=== PATIENT | male | born 1995 | race Two or more races ===

== ENCOUNTER 2016-05-11 11:07 | Emergency (ER) ==
[2016-05-11 11:14] VITALS: BP 127/80; TEMP 99
--- NOTE | 2016-05-11 11:42 | ED.PDOC ---
General ED Provider: Dr. FLORENTIN CALL Chief Complaint: Respiratory Complaint Stated Complaint: Patient is a 20 year old male who comes to the Er with 4 day history of cough and chills, sore throat. coughs so hard makes him gag and has chest pain with cough only. Time Seen by Physician: 11:38 Mode of Arrival: Walk-In Information Source: Patient Exam Limitations: No limitations Primary Care Provider: MÓNICA MORENO Nursing and Triage Documentation Reviewed and Agree: Yes Review of Systems - Review Of Systems Constitutional: Reports: Chills, Fever, Loss of appetite Eyes: Reports: No symptoms Ears, Nose, Mouth, Throat: Reports: Throat pain Respiratory: Reports: Cough Cardiac: Reports: Chest pain (with cough only ) GI: Reports: No symptoms : Reports: No symptoms Musculoskeletal: Reports: No symptoms Skin: Reports: No symptoms Neurological: Reports: No symptoms Endocrine: Reports: No symptoms Hematologic/Lymphatic: Reports: No symptoms All Other Systems: Reviewed and Negative Past Medical History - Past Medical History Endocrine: Reports: None Cardiovascular: Reports: None Respiratory: Reports: None Hematological: Reports: None Gastrointestinal: Reports: None Genitourinary: Reports: None Neuro/Psych: Reports: None Musculoskeletal: Reports: None Cancer: Reports: None - Surgical History General Surgical History: Reports: Unknown - Family History Family History: Reports: Unknown - Social History Smoking Status: Never smoker Hx Substance Use: Yes (marijuana) Alcohol Screening: None Physical Exam - Physical Exam Appearance: Ill-appearing, Well-nourished Ill-appearing: Mild Eyes: SAMY, EOMI, Conjunctiva clear ENT: Ears normal, Nose normal, Oropharynx normal Respiratory: Airway patent, Breath sounds clear, Breath sounds equal, Respirations nonlabored Cardiovascular: RRR, Pulses normal, No rub, No murmur GI/: Soft, Nontender, No masses, Bowel sounds normal, No Organomegaly Musculoskeletal: Normal strength, ROM intact, No edema, No calf tenderness Skin: Warm, Dry, Normal color Neurological: Sensation intact, Motor intact, Reflexes intact, Cranial nerves intact, Alert, Oriented Psychiatric: Affect appropriate, Mood appropriate Critical Care Note - Critical Care Note Total Time (mins): 0 Course - Course Orders, Labs, Meds: Lab Review 05/11/16 11:28 Influenza A (Rapid) Negative Influenza B (Rapid) Negative Orders Category Date Time Status FLU A & B RAPID TEST [RAPID FLU A/B] Stat LAB 05/11/16 11:28 Completed STREP SCREEN Stat LAB 05/11/16 11:27 Completed Vital Signs: Temp Pulse Resp BP Pulse Ox 05/11/16 11:08 99 F 69 20 127/80 97 Departure - Departure Time of Disposition: 11:53 Disposition: HOME SELF-CARE Discharge Problem: Strep pharyngitis Instructions: Strep Throat (ED) Condition: Fair Pt referred to PMD for follow-up: Yes (3 days ) Additional Instructions: Push fluids Follow up with PCP in 3 days Prescriptions: Amoxicillin [Amoxil] 500 mg PO TID #30 capsule Ibuprofen [Motrin] 600 mg PO Q6H PRN #20 tablet PRN Reason: Analgesia Allergies/Adverse Reactions: Allergies No Known Allergies Allergy (Verified 05/11/16 11:17) Home Medications: Ambulatory Orders Amoxicillin [Amoxil] 500 mg PO TID #30 capsule 05/11/16 Ibuprofen [Motrin] 600 mg PO Q6H PRN #20 tablet 05/11/16 Disposition Discussed With: Patient
[2016-05-11 11:50] LABS: FLU INTERNAL QC INTERNAL QC VALID; RAPID FLU A NEGATIVE (NEGATIVE); RAPID FLU B NEGATIVE (NEGATIVE)
== END 2016-05-11 12:03 | disposition home or self-care (01) ==
LOC: ED 11:07
DX: J02.0 Streptococcal pharyngitis (principal)
CPT/HCPCS: 87804; 87880; 99283

== ENCOUNTER 2016-06-25 20:02 | Outpatient (CLI) | END 2016-06-25 20:03 | disposition home or self-care (01) | LOC: AMBL 20:02 | PROVIDERS: ATTEND Family Medicine | DX: S99.911A Unspecified injury of right ankle, initial encounter (principal); Y93.67 Activity, basketball ==

== ENCOUNTER 2016-09-03 22:28 | Emergency (ER) ==
[2016-09-03 22:45] VITALS: BP 119/73; TEMP 99.2; BMI 27.7
--- NOTE | 2016-09-03 23:01 | ED.PDOC ---
General ED Provider: Dr. FLORENTIN CALL Chief Complaint: Hand Pain/Injury Stated Complaint: Patient is a 20 year old male who comes to the Er with right hand pain after he punched the refrigerator when he got angry. Now has painon the 3rd Knuckle. Also complains of a chronic rash on ther left hand that has been itchy and occasionally oozing clear fluid. Has not followed up wth PCP for the same. States that his girlfriend has same rash. Has been treated for scabies recently. Time Seen by Physician: 22:53 Mode of Arrival: Walk-In Information Source: Patient Exam Limitations: No limitations Primary Care Provider: MÓNICA MORENO Nursing and Triage Documentation Reviewed and Agree: Yes Review of Systems - Review Of Systems Constitutional: Reports: No symptoms Eyes: Reports: No symptoms Ears, Nose, Mouth, Throat: Reports: No symptoms Respiratory: Reports: No symptoms Cardiac: Reports: No symptoms GI: Reports: No symptoms : Reports: No symptoms Musculoskeletal: Reports: Joint pain (right hand ) Skin: Reports: Rash Neurological: Reports: Anxiety Endocrine: Reports: No symptoms Hematologic/Lymphatic: Reports: No symptoms All Other Systems: Reviewed and Negative Past Medical History - Past Medical History Endocrine: Reports: None Cardiovascular: Reports: None Respiratory: Reports: None Hematological: Reports: None Gastrointestinal: Reports: None Genitourinary: Reports: None Neuro/Psych: Reports: None Musculoskeletal: Reports: None Cancer: Reports: None - Surgical History General Surgical History: Reports: Unknown - Family History Family History: Reports: Unknown - Social History Smoking Status: Never smoker Hx Substance Use: Yes (marijuana) Alcohol Screening: Occasionally - Immunizations Tetanus Shot up to Date: Yes Physical Exam - Physical Exam Appearance: Well-appearing, No pain distress, Well-nourished Eyes: SAMY, EOMI, Conjunctiva clear ENT: Ears normal, Nose normal, Oropharynx normal Respiratory: Airway patent, Breath sounds clear, Breath sounds equal, Respirations nonlabored Cardiovascular: RRR, Pulses normal, No rub, No murmur GI/: Soft, Nontender, No masses, Bowel sounds normal, No Organomegaly Musculoskeletal: Normal strength, No calf tenderness, Limited ROM, Edema Skin: Warm, Dry, Normal color Neurological: Sensation intact, Motor intact, Reflexes intact, Cranial nerves intact, Alert, Oriented Psychiatric: Affect appropriate, Mood appropriate Interpretation - Radiology Interpretation Radiology Interpretation By: Radiologist Radiology Results: Negative Exam Interpreted: Other (hand x ray ) Critical Care Note - Critical Care Note Total Time (mins): 0 Course - Course Orders, Labs, Meds: Orders Category Date Time Status Ibuprofen [Motrin] MEDS 09/03/16 23:32 Discontinued 800 mg PO ONCE STA HAND, RIGHT 3 VIEWS Stat RADS 09/03/16 22:53 Completed Medications Discontinued Medications Generic Name Dose Route Start Last Admin Trade Name Freq PRN Reason Stop Dose Admin Ibuprofen 800 mg 09/03/16 23:32 09/03/16 23:42 Motrin PO 09/03/16 23:33 800 mg ONCE STA Administration Vital Signs: Temp Pulse Resp BP Pulse Ox 09/03/16 22:29 99.2 F 69 20 119/73 97 Departure - Departure Time of Disposition: 23:11 Disposition: HOME SELF-CARE Discharge Problem: Hand pain, Injury of hand, Dermatitis Instructions: Hand Sprain (ED), Dermatitis (ED) Condition: Fair Pt referred to PMD for follow-up: Yes Additional Instructions: Use steroid cream to rash twice a day taking care not to touch your eyes after applying Follow up with PCP for Skin biopsy Take Motrin for hand pain. Prescriptions: Clobetasol Propionate/Emoll [Clobetasol Emollient 0.05% Crm] 15 gm TP BID #30 cream..g. Ibuprofen [Motrin] 600 mg PO Q6H PRN #30 tablet PRN Reason: Analgesia Allergies/Adverse Reactions: Allergies No Known Allergies Allergy (Verified 09/03/16 22:44) Home Medications: Ambulatory Orders Ibuprofen [Motrin] 600 mg PO Q6H PRN #20 tablet 05/11/16 Clobetasol Propionate/Emoll [Clobetasol Emollient 0.05% Crm] 15 gm TP BID #30 cream..g. 09/03/16 Ibuprofen [Motrin] 600 mg PO Q6H PRN #30 tablet 09/03/16 Disposition Discussed With: Patient, Family
--- NOTE | 2016-09-03 23:26 | DI ---
EXAM: Three views of the right hand. HISTORY: Injury. FINDINGS: The bones are intact with no evidence of fracture. The joint spaces are maintained. No s oft tissue abnormality. Impression: Negative right hand.
[2016-09-03] MEDS ORDERED: MOTRIN PO STA (23:32)
== END 2016-09-03 23:45 | disposition home or self-care (01) ==
LOC: ED 22:28
DX: S69.91XA Unspecified injury of right wrist, hand and finger(s), initial encounter (principal); L30.9 Dermatitis, unspecified; W22.8XXA Striking against or struck by other objects, initial encounter
CPT/HCPCS: 99282

== ENCOUNTER 2016-11-21 12:31 | Emergency (ER) ==
[2016-11-21 12:31] VITALS: BMI 27.7
[2016-11-21 12:36] VITALS: BP 126/69; TEMP 98.2
--- NOTE | 2016-11-21 12:53 | ED.PDOC ---
General ED Provider: Dr. BRIDGETTE BRENNER Chief Complaint: Knee Pain/Injury Stated Complaint: Twisted knee when stepped in a hole yesterday while playing basketball. Knee began to hurt immediately. Hurts more when fully extended, mainly "behind my knee cap." No instability. Mild swelling. Time Seen by Physician: 12:55 Mode of Arrival: Walk-In Information Source: Patient Exam Limitations: No limitations Primary Care Provider: MÓNICA MORENO Nursing and Triage Documentation Reviewed and Agree: Yes Musculoskeletal Complaint Exam - Knee Pain Complaint/Exam Mechanism of Injury: Reports: Trauma (Tender anteriorly "under knee cap") Onset/Duration: 1 day Symptoms Are: Still present Onset of Pain: Reports: Immediate Initial Severity: Severe Current Severity: Moderate Location: Reports: Diffuse Character: Reports: Aching Alleviating: Reports: Rest, Position Aggravating: Reports: Movement, Weight bearing Associated Signs and Symptoms: Reports: Swelling Able to Bear Weight: Yes Septic Arthritis Risk Factors: Reports: None Gout Risk Factors: Reports: None Knee Findings: Present: Swelling Tenderness: Present: Pre-patellar, Joint, Tibial Tuberosity Torie Test Positive: No Kriss Test Positive: No Differential Diagnoses: Closed Fracture, Sprain Review of Systems - Review Of Systems Constitutional: Reports: No symptoms Eyes: Reports: No symptoms Ears, Nose, Mouth, Throat: Reports: No symptoms Respiratory: Reports: No symptoms Cardiac: Reports: No symptoms GI: Reports: No symptoms : Reports: No symptoms Musculoskeletal: Reports: Joint pain, Joint swelling Skin: Reports: No symptoms Neurological: Reports: No symptoms Endocrine: Reports: No symptoms Hematologic/Lymphatic: Reports: No symptoms All Other Systems: Reviewed and Negative Past Medical History - Past Medical History Previously Healthy: Yes Endocrine: Reports: None Cardiovascular: Reports: None Respiratory: Reports: None Hematological: Reports: None Gastrointestinal: Reports: None Genitourinary: Reports: None Neuro/Psych: Reports: None Musculoskeletal: Reports: None, Joint Pain (right ankle severe sprain, ambulatory but "needs surgery eventually") Cancer: Reports: None - Surgical History General Surgical History: Reports: Unknown - Family History Family History: Reports: Unknown - Social History Smoking Status: Never smoker Hx Substance Use: Yes (marijuana) Alcohol Screening: Occasionally - Immunizations Tetanus Shot up to Date: Yes Physical Exam - Physical Exam Appearance: Well-appearing Ill-appearing: None Pain Distress: None Musculoskeletal: Normal strength, ROM intact, No edema, No calf tenderness ( tenderness of anterior left knee, no instability) Skin: Warm, Dry, Normal color Neurological: Sensation intact, Motor intact, Reflexes intact, Cranial nerves intact, Alert, Oriented Psychiatric: Affect appropriate, Mood appropriate Interpretation - Radiology Interpretation Radiology Interpretation By: Radiologist Radiology Results: Negative Exam Interpreted: Other (left shoulder) Critical Care Note - Critical Care Note Total Time (mins): 0 Course - Course Orders, Labs, Meds: Orders Category Date Time Status KNEE, LEFT 4 VIEWS Stat RADS 11/21/16 13:02 Completed Vital Signs: Temp Pulse Resp BP Pulse Ox 11/21/16 12:31 98.2 F 89 20 126/69 98 Departure - Departure Time of Disposition: 13:40 Disposition: HOME SELF-CARE Discharge Problem: Sprain of left knee Discharge Problem: (Ruled Out): Sprain of left shoulder Instructions: Knee Sprain (ED) Condition: Good Pt referred to PMD for follow-up: No (see PCP if no better in one week) Additional Instructions: Avoid weight-bearing on left knee (use crutches) Prescriptions: Ibuprofen 800 mg PO TID #30 tablet Allergies/Adverse Reactions: Allergies No Known Allergies Allergy (Verified 11/21/16 12:36) Home Medications: Ambulatory Orders Ibuprofen 800 mg PO TID #30 tablet 11/21/16 Disposition Discussed With: Patient
--- NOTE | 2016-11-21 13:19 | DI ---
Exam: Four x-rays of the left knee. Comparison: None available. Reason for exam: Injury, twisted knee playing basketball. FINDINGS: No acute fracture or dislocation. The joint spaces are well maintained. There is no une xplained calcific soft tissue density or radiopaque retained foreign body. Impression: No acute fracture or malalignment of the left knee
== END 2016-11-21 13:37 | disposition home or self-care (01) ==
LOC: ED 12:31
DX: S83.92XA Sprain of unspecified site of left knee, initial encounter (principal); X50.1XXA Overexertion from prolonged static or awkward postures, initial encounter; Y93.67 Activity, basketball
CPT/HCPCS: 99282

== ENCOUNTER 2016-12-05 17:04 | Emergency (ER) ==
[2016-12-05 17:05] VITALS: BMI 27.7
[2016-12-05 17:10] VITALS: BP 130/77; TEMP 98.4
--- NOTE | 2016-12-05 17:36 | ED.PDOC ---
General ED Provider: Dr. SHAWN TALAVERA Chief Complaint: Abdominal Pain Stated Complaint: testicular pain left sided Time Seen by Physician: 17:10 (this pain is chronic with occasional flare ups) Mode of Arrival: Walk-In Information Source: Patient Exam Limitations: No limitations Primary Care Provider: MÓNICA MORENO Referred to ED by: Other (seen with advertising space clerk) Nursing and Triage Documentation Reviewed and Agree: Yes (denied discharge , angy was present at all times ) Complaint Exam - STD Male Complaint/Exam Onset/Duration: this episode is 4 days old Symptoms Are: Still present Timing: Intermittent Initial Severity: Moderate Current Severity: Moderate Location: Reports: Left, Testicle Aggravating: Reports: None Alleviating: Reports: None Associated Signs and Symptoms: Reports: Testicular pain. Denies: Dysuria, Penile sores, Scrotal pain, Scrotal swelling, Testicular swelling Related History: Reports: Similar episode Related Surgical History: Reports: None Genitalia Exam: Present: Normal findings Differential Diagnoses: Other Review of Systems - Review Of Systems Constitutional: Reports: No symptoms Eyes: Reports: No symptoms Ears, Nose, Mouth, Throat: Reports: No symptoms Respiratory: Reports: No symptoms Cardiac: Reports: No symptoms GI: Reports: No symptoms : Reports: Other (testicular pain ) Musculoskeletal: Reports: No symptoms Skin: Reports: No symptoms Neurological: Reports: No symptoms Endocrine: Reports: No symptoms Hematologic/Lymphatic: Reports: No symptoms All Other Systems: Reviewed and Negative Past Medical History - Past Medical History Previously Healthy: Yes Endocrine: Reports: None Cardiovascular: Reports: None Respiratory: Reports: None Hematological: Reports: None Gastrointestinal: Reports: None Genitourinary: Reports: None Neuro/Psych: Reports: None Musculoskeletal: Reports: None, Joint Pain (right ankle severe sprain, ambulatory but "needs surgery eventually") Cancer: Reports: None - Surgical History General Surgical History: Reports: Unknown - Family History Family History: Reports: Unknown - Social History Smoking Status: Never smoker Hx Substance Use: Yes (some majurana) Alcohol Screening: None - Immunizations Tetanus Shot up to Date: Yes Physical Exam - Physical Exam Appearance: Well-appearing, No pain distress, Well-nourished Eyes: SAMY, EOMI, Conjunctiva clear ENT: Ears normal, Nose normal, Oropharynx normal Respiratory: Airway patent, Breath sounds clear, Breath sounds equal, Respirations nonlabored Cardiovascular: RRR, Pulses normal, No rub, No murmur GI/: Soft, Nontender, No masses, Bowel sounds normal, No Organomegaly Musculoskeletal: Normal strength, ROM intact, No edema, No calf tenderness Skin: Warm, Dry, Normal color Neurological: Sensation intact, Motor intact, Reflexes intact, Cranial nerves intact, Alert, Oriented Psychiatric: Affect appropriate, Mood appropriate Critical Care Note - Critical Care Note Total Time (mins): 0 Course - Course Vital Signs: Temp Pulse Resp BP Pulse Ox 12/05/16 17:05 98.4 F 83 16 130/77 96 Departure - Departure Time of Disposition: 17:36 (explained to pt that with testicular pain one diff is torsion , there is no U/S avilable this time . i explained to the pt that i would ranfer him to one of the [facility].pt stated he has had this problem for a long time and would like to return in am for the [place]. Risks of torsion testicular dammage, loss discussed still would not stay leftAMA TO RETURN IN AM. ANGY WAS PRESENT AT ALL TIMES ) Disposition: AMA Discharge Problem: Testicular/scrotal pain Instructions: Testicle Pain (ED), Scrotal Pain (ED), Testicular Torsion (ED), Testicular Self-examination (ED) Condition: Good Pt referred to PMD for follow-up: Yes Additional Instructions: Please call your Family Physician as soon as possible to schedule a follow-up appointment. RETURN IN AM OR IF THE PAIN IS MORE TESTICULAR TORSION IS A SERIOUS CONDITION Allergies/Adverse Reactions: Allergies No Known Allergies Allergy (Verified 11/21/16 12:36) Home Medications: Ambulatory Orders Ibuprofen 800 mg PO TID #30 tablet 11/21/16
== END 2016-12-05 18:00 | disposition left against medical advice (07) ==
LOC: ED 17:04
DX: N50.812 Left testicular pain (principal); N50.82 Scrotal pain
CPT/HCPCS: 99281

== ENCOUNTER 2017-01-08 15:55 | Emergency (ER) ==
[2017-01-08 16:05] VITALS: BP 144/84; TEMP 97.3; BMI 27.1
--- NOTE | 2017-01-08 16:17 | ED.PDOC ---
General ED Provider: Dr. TERRENCE DOHERTY-ER Chief Complaint: Hand Pain/Injury Stated Complaint: unhooking trailer and the hitch caught my hand Time Seen by Physician: 16:15 Mode of Arrival: Walk-In Information Source: Patient Exam Limitations: No limitations Primary Care Provider: MÓNICA MORENO Nursing and Triage Documentation Reviewed and Agree: Yes Musculoskeletal Complaint Exam - Hand/Wrist Complaint/Exam Location of Pain: Reports: Right, Hand Mechanism of Injury: Reports: Trauma Onset/Duration: one hour Symptoms Are: Still present Onset of Pain: Reports: Immediate Initial Severity: Mild Current Severity: Mild Location: Reports: Discrete Character: Reports: Dull, Aching Aggravating: Reports: Movement Associated Signs and Symptoms: Reports: Swelling, Bruising. Denies: Redness, Fever, Weakness, Numbness, Tingling Dominant Hand: Right Hand/Wrist Findings: Present: Swelling, Ecchymosis Tenderness: Present: Metacarpal, Phalanx Compartment Syndrome Risk Factors: Present: Pain Differential Diagnoses: Contusion, Closed Fracture, Sprain, Strain Review of Systems - Review Of Systems Constitutional: Reports: No symptoms Eyes: Reports: No symptoms Ears, Nose, Mouth, Throat: Reports: No symptoms Respiratory: Reports: No symptoms Cardiac: Reports: No symptoms GI: Reports: No symptoms : Reports: No symptoms Musculoskeletal: Reports: No symptoms Skin: Reports: Bruising Neurological: Reports: No symptoms Endocrine: Reports: No symptoms Hematologic/Lymphatic: Reports: No symptoms All Other Systems: Reviewed and Negative Past Medical History - Past Medical History Previously Healthy: Yes Endocrine: Reports: None Cardiovascular: Reports: None Respiratory: Reports: None Hematological: Reports: None Gastrointestinal: Reports: None Genitourinary: Reports: None Neuro/Psych: Reports: None Musculoskeletal: Reports: None, Joint Pain (right ankle severe sprain, ambulatory but "needs surgery eventually") Cancer: Reports: None - Surgical History General Surgical History: Reports: Unknown - Family History Family History: Reports: Unknown - Social History Smoking Status: Never smoker Hx Substance Use: Yes (some majurana) Alcohol Screening: None Lives: With family Physical Exam - Physical Exam Appearance: Well-appearing, No pain distress, Well-nourished Pain Distress: Mild Eyes: SAMY ENT: Ears normal, Nose normal, Oropharynx normal Neck: Supple Respiratory: Airway patent Cardiovascular: RRR GI/: Soft, Nontender, No masses, Bowel sounds normal, No Organomegaly Musculoskeletal: Limited ROM Skin: Warm, Dry, Normal color Neurological: Sensation intact, Motor intact, Reflexes intact, Cranial nerves intact, Alert, Oriented Psychiatric: Affect appropriate, Mood appropriate Interpretation - Radiology Interpretation Radiology Interpretation By: Radiologist Radiology Results: Negative Critical Care Note - Critical Care Note Total Time (mins): 0 Course - Course Orders, Labs, Meds: Orders Category Date Time Status LUIGI [ED LUIGI WRAP] .ONCE EMERGENCY 01/08/17 16:58 Active HAND, RIGHT 3 VIEWS Stat RADS 01/08/17 16:04 Completed Vital Signs: Temp Pulse Resp BP Pulse Ox 01/08/17 15:56 97.3 F L 74 16 144/84 H 96 Departure - Departure Time of Disposition: 16:57 Disposition: HOME SELF-CARE Discharge Problem: Injury of hand Instructions: Contusion in Adults (ED) Condition: Good Pt referred to PMD for follow-up: Yes Additional Instructions: elevatd, ice --tylenol #3 q 6hrs prn pain #10--f/u with pcp Allergies/Adverse Reactions: Allergies No Known Allergies Allergy (Verified 01/08/17 16:03) Home Medications: Ambulatory Orders 1 [No Reported Medications] 01/08/17 Disposition Discussed With: Patient, Family
--- NOTE | 2017-01-08 16:51 | DI ---
EXAM: Right hand three-view HISTORY: Pain COMPARISON: None FINDINGS: The bones are normal. The joints are normal. No focal soft tissue abnormality. IMPERSSION: Normal examination.
== END 2017-01-08 17:04 | disposition home or self-care (01) ==
LOC: ED 15:55
DX: S69.91XA Unspecified injury of right wrist, hand and finger(s), initial encounter (principal); W22.8XXA Striking against or struck by other objects, initial encounter
CPT/HCPCS: 99282

== ENCOUNTER 2017-02-10 16:07 | Emergency (ER) ==
[2017-02-10 16:28] VITALS: BP 134/75; TEMP 99.6; BMI 28.0
--- NOTE | 2017-02-10 16:34 | ED.PDOC ---
General ED Provider: Dr. SHAWN TALAVERA Chief Complaint: Nausea/Vomiting Stated Complaint: N/VOMITING Time Seen by Physician: 16:30 Mode of Arrival: Walk-In Information Source: Patient Exam Limitations: No limitations Primary Care Provider: MÓNICA MORENO Nursing and Triage Documentation Reviewed and Agree: Yes (HER GIRLFRIEND HAS SAME ISSUE) GI Complaint Exam - Vomiting/Diarrhea Complaint/Exam Onset/Duration: 1 DAY Symptoms Are: Resolved Episodes of Vomiting over last 24 Hours: 3 Episodes of Diarrhea Over Last 24 Hours: 2 Initial Severity: Mild Current Severity: None Character of Vomiting: Reports: Non-bilious Aggravating: Reports: None Alleviating: Reports: None Associated Signs and Symptoms: Denies: Dizziness, Light-headedness, Melena, Hematemesis, Fever, Abdominal pain, Cramping Non-GI Risk Factors: Reports: None Surgical Obstruction Risk Factors: Reports: None Related Surgical History: Reports: None Abdominal Findings: Present: None Differential Diagnoses: Viral Gastroenteritis Review of Systems - Review Of Systems Constitutional: Reports: Malaise Eyes: Reports: No symptoms Ears, Nose, Mouth, Throat: Reports: No symptoms Respiratory: Reports: No symptoms Cardiac: Reports: No symptoms GI: Reports: Diarrhea, Nausea, Vomiting : Reports: No symptoms Musculoskeletal: Reports: No symptoms Skin: Reports: No symptoms Neurological: Reports: No symptoms Endocrine: Reports: No symptoms Hematologic/Lymphatic: Reports: No symptoms All Other Systems: Reviewed and Negative Past Medical History - Past Medical History Previously Healthy: Yes Endocrine: Reports: None Cardiovascular: Reports: None Respiratory: Reports: None Hematological: Reports: None Gastrointestinal: Reports: None Genitourinary: Reports: None Neuro/Psych: Reports: None Musculoskeletal: Reports: None, Joint Pain (right ankle severe sprain, ambulatory but "needs surgery eventually") Cancer: Reports: None - Surgical History General Surgical History: Reports: Unknown - Family History Family History: Reports: Unknown - Social History Smoking Status: Never smoker Hx Substance Use: Yes (some majurana) Alcohol Screening: None Physical Exam - Physical Exam Appearance: Well-appearing, No pain distress, Well-nourished Eyes: SAMY, EOMI, Conjunctiva clear ENT: Ears normal, Nose normal, Oropharynx normal Respiratory: Airway patent, Breath sounds clear, Breath sounds equal, Respirations nonlabored Cardiovascular: RRR, Pulses normal, No rub, No murmur GI/: Soft, Nontender, No masses, Bowel sounds normal, No Organomegaly Musculoskeletal: Normal strength, ROM intact, No edema, No calf tenderness Skin: Warm, Dry, Normal color Neurological: Sensation intact, Motor intact, Reflexes intact, Cranial nerves intact, Alert, Oriented Psychiatric: Affect appropriate, Mood appropriate Critical Care Note - Critical Care Note Total Time (mins): 0 Course - Course Vital Signs: Temp Pulse Resp BP Pulse Ox 02/10/17 16:20 99.6 F 74 20 134/75 99 Departure - Departure Time of Disposition: 16:34 Disposition: HOME SELF-CARE Discharge Problem: Nausea, Vomiting, Viral syndrome Instructions: Viral Syndrome (ED) Condition: Good Pt referred to PMD for follow-up: Yes Additional Instructions: Please call your Family Physician as soon as possible to schedule a follow-up appointment. Allergies/Adverse Reactions: Allergies No Known Allergies Allergy (Verified 02/10/17 16:29) Home Medications: Ambulatory Orders 1 [No Reported Medications] 01/08/17
== END 2017-02-10 16:53 | disposition home or self-care (01) ==
LOC: ED 16:07
DX: B34.9 Viral infection, unspecified (principal)
CPT/HCPCS: 99282

== ENCOUNTER 2017-03-13 21:31 | Emergency (ER) ==
[2017-03-13 21:38] VITALS: BP 159/86; TEMP 99.7; BMI 27.0
--- NOTE | 2017-03-13 22:05 | ED.PDOC ---
General ED Provider: Dr. TERRENCE DOHERTY-ER Chief Complaint: Sore Throat Stated Complaint: sebas had a sore throat for 2 days Time Seen by Physician: 21:35 Mode of Arrival: Walk-In Information Source: Patient Exam Limitations: No limitations Primary Care Provider: MÓNICA MORENO Nursing and Triage Documentation Reviewed and Agree: Yes Reviewed sepsis parameters & appropriate labs ordered?: Yes System Inflammatory Response Syndrome: Not Applicable Sepsis Protocol: For patient's 13 years and over: Temp is 96.8 and below OR 101 and greater Pulse >90 BPM Resp >20/minute Acutely Altered Mental Status Are patient's symptoms suggestive of a new infection, such as: -Pneumonia -Skin, Soft Tissue -Endocarditis -UTI -Bone, Joint Infection -Implantable Device -Acute Abdominal Infection -Wound Infection -Meningitis -Blood Stream Catheter Infection -Unknown EENT Complaint Exam - Throat Complaint/Exam Onset/Duration: 24 hrs Symptoms Are: Still present Timimg: Constant Initial Severity: Mild Current Severity: Moderate Alleviating: Reports: Antipyretics Associated Signs and Symptoms: Reports: Fever, Cough, Nasal congestion. Denies : Dysphagia, Drooling, Foreign body sensation, Chills, Wheezing, Hoarseness, Sinus discomfort, Difficulty breathing, Lethargy, Irritability, Decreased activity, Vomiting, Diarrhea, Decreased hearing, Ear drainage Related History: Reports: Similar Episode Uvula Midline: Yes Belle-tonsillar Fluctuence: No Scarlatinaform Rash Present: No Exanthem: Present: Pharynx Differential Diagnoses: Pharyngitis Review of Systems - Review Of Systems Constitutional: Reports: Chills, Fever Eyes: Reports: No symptoms Ears, Nose, Mouth, Throat: Reports: Throat pain, Throat swelling Respiratory: Reports: No symptoms Cardiac: Reports: No symptoms GI: Reports: No symptoms : Reports: No symptoms Musculoskeletal: Reports: No symptoms Skin: Reports: No symptoms Neurological: Reports: No symptoms Endocrine: Reports: No symptoms Hematologic/Lymphatic: Reports: No symptoms All Other Systems: Reviewed and Negative Past Medical History - Past Medical History Previously Healthy: Yes Endocrine: Reports: None Cardiovascular: Reports: None Respiratory: Reports: None Hematological: Reports: None Gastrointestinal: Reports: None Genitourinary: Reports: None Neuro/Psych: Reports: None Musculoskeletal: Reports: None, Joint Pain (right ankle severe sprain, ambulatory but "needs surgery eventually") Cancer: Reports: None - Surgical History General Surgical History: Reports: Unknown - Family History Family History: Reports: Unknown - Social History Smoking Status: Never smoker Hx Substance Use: No Alcohol Screening: Occasionally Lives: With family - Immunizations Tetanus Shot up to Date: Yes Physical Exam - Physical Exam Appearance: Well-appearing, No pain distress, Well-nourished Pain Distress: Mild Eyes: SAMY, EOMI, Conjunctiva clear ENT: Rhinorrhea, Erythema Neck: Supple Respiratory: Airway patent, Breath sounds clear, Breath sounds equal, Respirations nonlabored Cardiovascular: RRR, Pulses normal, No rub, No murmur GI/: Soft, Nontender, No masses, Bowel sounds normal, No Organomegaly Musculoskeletal: Normal strength, ROM intact, No edema, No calf tenderness Skin: Warm, Dry, Normal color Neurological: Sensation intact Psychiatric: Affect appropriate, Mood appropriate Critical Care Note - Critical Care Note Total Time (mins): 0 Course - Course Orders, Labs, Meds: Orders Category Date Time Status MOLECULAR FLU A/B Stat LAB 03/13/17 21:37 Received MOLECULAR GROUP A STREP Stat LAB 03/13/17 21:37 Completed Vital Signs: Temp Pulse Resp BP Pulse Ox 03/13/17 21:32 99.7 F H 90 16 159/86 H 97 Departure - Departure Time of Disposition: 22:05 Disposition: HOME SELF-CARE Discharge Problem: Streptococcal sore throat Instructions: Strep Throat (ED) Condition: Good Pt referred to PMD for follow-up: Yes Additional Instructions: amoxil 500mg tid x 7days--salt water gargles--tylenol or motrin for fever or pain--recheck in 72hrs if not bettewr Allergies/Adverse Reactions: Allergies No Known Allergies Allergy (Verified 02/10/17 16:29) Home Medications: Ambulatory Orders 1 [No Reported Medications] 01/08/17 Disposition Discussed With: Patient, Family
== END 2017-03-13 22:08 | disposition home or self-care (01) ==
LOC: ED 21:31
DX: J02.0 Streptococcal pharyngitis (principal)
CPT/HCPCS: 87502; 87651; 99282

== ENCOUNTER 2017-11-08 19:38 | Outpatient (CLI) | END 2017-11-08 19:56 | disposition short-term general hospital (02) | LOC: AMBL 19:38 | PROVIDERS: ATTEND Emergency Medicine | DX: S99.912A Unspecified injury of left ankle, initial encounter (principal); X50.1XXA Overexertion from prolonged static or awkward postures, initial encounter ==

== ENCOUNTER 2018-01-11 18:38 | Emergency (ER) ==
[2018-01-11 18:41] VITALS: BP 147/89; TEMP 97.7; BMI 26.9
[2018-01-11] MEDS ORDERED: PROTONIX IV IVP STA (19:27)
[2018-01-11] MEDS ORDERED: SODIUM CHLORIDE 1,000 ML IV STA (19:27)
[2018-01-11] MEDS ORDERED: PHENERGAN 25 MG/ML VIAL 25 MG in SODIUM CHLORIDE 50 ML IV STA (19:27)
--- NOTE | 2018-01-11 19:33 | ED.PDOC ---
General ED Provider: Dr. FLORENTIN CALL Chief Complaint: Nausea/Vomiting Stated Complaint: "i have been having nausea vomiting and diarrhea since this morning. I think I ate some bad food" Time Seen by Physician: 19:32 Mode of Arrival: Walk-In Information Source: Patient Primary Care Provider: MÓNICA MORENO Nursing and Triage Documentation Reviewed and Agree: Yes Does patient meet sepsis criteria?: No System Inflammatory Response Syndrome: Not Applicable Sepsis Protocol: For patient's 13 years and over: Temp is 96.8 and below OR 101 and greater Pulse >90 BPM Resp >20/minute Acutely Altered Mental Status Are patient's symptoms suggestive of a new infection, such as: -Pneumonia -Skin, Soft Tissue -Endocarditis -UTI -Bone, Joint Infection -Implantable Device -Acute Abdominal Infection -Wound Infection -Meningitis -Blood Stream Catheter Infection -Unknown GI Complaint Exam - Vomiting/Diarrhea Complaint/Exam Onset/Duration: 12 hours Symptoms Are: Still present Episodes of Vomiting over last 24 Hours: 3 Episodes of Diarrhea Over Last 24 Hours: 15 Initial Severity: Severe Current Severity: Moderate Character of Vomiting: Reports: Non-bilious Character of Diarrhea: Reports: Watery Aggravating: Reports: Food, Liquids Alleviating: Reports: None Associated Signs and Symptoms: Reports: Cramping Related History: Denies: Similar episode, Recent antibiotics Last Oral Intake: This morning Last Bowel Movement: few min ago Non-GI Risk Factors: Reports: None Surgical Obstruction Risk Factors: Reports: None Related Surgical History: Reports: None Abdominal Findings: Present: None Differential Diagnoses: Cholecystitis, Cholelithiasis, Dehydration, Gastritis, Viral Gastroenteritis, Bacterial Gastroenteritis, Pancreatitis Review of Systems - Review Of Systems Constitutional: Reports: No symptoms Eyes: Reports: No symptoms Ears, Nose, Mouth, Throat: Reports: No symptoms Respiratory: Reports: No symptoms Cardiac: Reports: No symptoms GI: Reports: Abdominal pain, Diarrhea, Nausea, Poor appetite, Poor fluid intake , Vomiting : Reports: No symptoms Musculoskeletal: Reports: No symptoms Skin: Reports: No symptoms Neurological: Reports: No symptoms Endocrine: Reports: No symptoms Hematologic/Lymphatic: Reports: No symptoms All Other Systems: Reviewed and Negative Past Medical History - Past Medical History Previously Healthy: Yes Endocrine: Reports: None Cardiovascular: Reports: None Respiratory: Reports: None Hematological: Reports: None Gastrointestinal: Reports: None Genitourinary: Reports: None Neuro/Psych: Reports: Bipolar Disorder, Other (ADHD) Musculoskeletal: Reports: Joint Pain (right ankle severe sprain, ambulatory but "needs surgery eventually") Cancer: Reports: None - Surgical History General Surgical History: Reports: Other (wisdom teeth removeal ) - Family History Family History: Reports: Unknown - Social History Smoking Status: Never smoker Hx Substance Use: No Alcohol Screening: Occasionally Physical Exam - Physical Exam Appearance: Ill-appearing Pain Distress: Mild Neck: Supple Respiratory: Airway patent, Breath sounds clear, Breath sounds equal, Respirations nonlabored Cardiovascular: RRR, Pulses normal, No rub, No murmur GI/: Soft, Nontender, Bowel sounds hyperactive Musculoskeletal: Normal strength, ROM intact, No edema, No calf tenderness Skin: Warm, Dry, Normal color Neurological: Sensation intact, Motor intact, Reflexes intact, Cranial nerves intact, Alert, Oriented Psychiatric: Anxious Re-Evaluation - Re-Evaluation Time of Re-Evaluation: 21:10 (Diarrhea has resolved ) Status: Improved Vital Signs Stable: Yes Critical Care Note - Critical Care Note Total Time (mins): 0 Course - Course Hematology/Chemistry: 01/11/18 19:35 01/11/18 19:35 Orders, Labs, Meds: Lab Review 01/11/18 01/11/18 01/11/18 19:35 19:35 20:25 WBC 13.61 H RBC 5.26 Hgb 16.2 Hct 46.0 MCV 87.5 MCH 30.8 MCHC 35.2 RDW Coeff of Luana 12.8 Plt Count 194 Immature Gran % (Auto) 0.3 Neut % (Auto) 79.1 Lymph % (Auto) 13.1 [place] % (Auto) 6.4 Eos % (Auto) 0.8 Baso % (Auto) 0.3 Immature Gran # (Auto) 0.0 Neut # (Auto) 10.8 H Lymph # (Auto) 1.8 [place] # (Auto) 0.9 Eos # (Auto) 0.1 Baso # (Auto) 0.0 Sodium 137.2 Potassium 4.00 Chloride 103.5 Carbon Dioxide 27.9 Anion Gap 9.80 BUN 12.5 Creatinine 0.88 Estimated GFR (MDRD) 107.00 BUN/Creatinine Ratio 14.20 Glucose 95.3 Calcium 9.65 Total Bilirubin 0.80 AST 19.5 ALT 24.6 Alkaline Phosphatase 63.1 Total Protein 8.12 Albumin 4.86 Globulin 3.26 Albumin/Globulin Ratio 1.49 Amylase 81.4 Lipase 43.1 Urine Color Yellow Urine Clarity Clear Urine pH 5.5 Ur Specific [place] >=1.030 Urine Protein Trace Urine Glucose (UA) Negative Urine Ketones Negative Urine Blood Negative Urine Nitrite Negative Urine Bilirubin Negative Urine Urobilinogen 0.2 Ur Leukocyte Esterase Negative Urine Microscopic WBC 0-2 Ur Squamous Epith Cells Not present Urine Mucus Trace Orders Category Date Time Status ED IV/MEDIPORT/POWERPORT .ONCE EMERGENCY 01/11/18 19:27 Active AMYLASE Stat LAB 01/11/18 19:35 Completed CBC W/ AUTO DIFF Stat LAB 01/11/18 19:35 Completed COMPREHENSIVE METABOLIC PANEL Stat LAB 01/11/18 19:35 Completed LIPASE Stat LAB 01/11/18 19:35 Completed URINALYSIS C & S IF INDICATED Stat LAB 01/11/18 20:25 Completed 0.9 % Sodium Chloride [Saline Flush] MEDS 01/11/18 19:27 Discontinued 1 syr IVF PRN PRN Diphenoxylate HCl/Atropine [Lomotil] MEDS 01/11/18 20:24 Discontinued 1 tab PO ONCE STA Pantoprazole Sodium [Protonix IV] MEDS 01/11/18 19:27 Discontinued 40 mg IVP ONCE STA Promethazine HCl [Phenergan 25 mg/ml Vial] MEDS 01/11/18 19:46 Discontinued 25 mg .ROUTE .STK-MED ONE Promethazine HCl [Phenergan 25 mg/ml Vial] 25 mg MEDS 01/11/18 19:27 Discontinued 0.9 % Sodium Chloride [Sodium Chloride] 50 ml IV ONCE Sodium Chloride 0.9% [Sodium Chloride] 1,000 ml MEDS 01/11/18 19:27 Discontinued IV BOLUS Medications Generic Name Dose Route Start Last Admin Trade Name Freq PRN Reason Stop Dose Admin Sodium Chloride 1 syr 01/11/18 19:27 Saline Flush IVF PRN PRN To flush IV Discontinued Medications Generic Name Dose Route Start Last Admin Trade Name Freq PRN Reason Stop Dose Admin Diphenoxylate HCl/Atropine 1 tab 01/11/18 20:24 01/11/18 20:28 Lomotil PO 01/11/18 20:25 1 tab ONCE STA Administration Sodium Chloride 1,000 mls @ 1,000 mls/hr 01/11/18 19:27 01/11/18 19:59 Sodium Chloride IV 01/11/18 20:26 1,000 mls/hr BOLUS STA Administration Promethazine HCl 25 mg/ Sodium 51 mls @ 75 mls/hr 01/11/18 19:27 01/11/18 19: 51 Chloride IV 01/11/18 20:07 75 mls/hr ONCE STA Administration Pantoprazole Sodium 40 mg 01/11/18 19:27 01/11/18 19:51 Protonix Iv IVP 01/11/18 19:28 40 mg ONCE STA Administration Vital Signs: Temp Pulse Resp BP Pulse Ox 01/11/18 18:38 97.7 F 75 20 147/89 H 99 Departure - Departure Time of Disposition: 21:15 Disposition: HOME SELF-CARE Discharge Problem: Acute gastroenteritis Instructions: Gastroenteritis (ED) Condition: Fair Pt referred to PMD for follow-up: Yes IPMP verified?: No Additional Instructions: Push fluid and Electrolytes Follow up with PCP in 3 days Prescriptions: Diphenoxylate HCl/Atropine [Lomotil] 10 ml PO TID PRN #15 disp.syrin PRN Reason: Diarrhea Ondansetron [Zofran Odt] 4 mg PO Q8H #14 tab.rapdis Allergies/Adverse Reactions: Allergies No Known Allergies Allergy (Verified 01/11/18 18:41) Home Medications: Ambulatory Orders Diphenoxylate HCl/Atropine [Lomotil] 10 ml PO TID PRN #15 disp.syrin 01/11/18 Ondansetron [Zofran Odt] 4 mg PO Q8H #14 tab.rapdis 01/11/18 Disposition Discussed With: Patient, Family
[2018-01-11] MEDS ORDERED: PHENERGAN 25 MG/ML VIAL ONE (19:46)
[2018-01-11] MEDS ORDERED: LOMOTIL PO STA (20:24)
== END 2018-01-11 21:20 | disposition home or self-care (01) ==
LOC: ED 18:38
DX: K52.9 Noninfective gastroenteritis and colitis, unspecified (principal)
CPT/HCPCS: 36415; 80053; 81001; 82150; 83690; 85025; 96361; 96365; 99283

== ENCOUNTER 2018-05-31 11:14 | Emergency (ER) ==
[2018-05-31 11:20] VITALS: BP 132/80; TEMP 96.8; BMI 28.5
--- NOTE | 2018-05-31 11:48 | ED.PDOC ---
General ED Provider: Dr. TERRENCE BANSAL Chief Complaint: Knee Pain/Injury Stated Complaint: Lt Knee Hurting. Onset X 6 mo. NO KNOWN INJURY. Previoulsy played sports and sprained ankle Time Seen by Physician: 11:35 Mode of Arrival: Walk-In Information Source: Patient Exam Limitations: No limitations Primary Care Provider: MÓNICA MORENO Nursing and Triage Documentation Reviewed and Agree: Yes Does patient meet sepsis criteria?: No System Inflammatory Response Syndrome: Not Applicable Sepsis Protocol: For patient's 13 years and over: Temp is 96.8 and below OR 101 and greater Pulse >90 BPM Resp >20/minute Acutely Altered Mental Status Are patient's symptoms suggestive of a new infection, such as: -Pneumonia -Skin, Soft Tissue -Endocarditis -UTI -Bone, Joint Infection -Implantable Device -Acute Abdominal Infection -Wound Infection -Meningitis -Blood Stream Catheter Infection -Unknown Musculoskeletal Complaint Exam - Knee Pain Complaint/Exam Mechanism of Injury: Reports: No known trauma Onset/Duration: 3 mo Symptoms Are: Still present Onset of Pain: Reports: Prior to arrival Initial Severity: Mild Current Severity: Mild Location: Reports: Discrete Character: Reports: Sharp, Aching Alleviating: Reports: Rest Aggravating: Reports: Movement, Weight bearing Associated Signs and Symptoms: Denies: Swelling, Redness, Bruising, Fever, Weakness, Numbness, Tingling Able to Bear Weight: Yes Related History: Reports: Similar episode Septic Arthritis Risk Factors: Reports: None Gout Risk Factors: Reports: None Related Surgical History: Denies: Right Knee, Left Knee, Other Orthopedic Surgery Knee Findings: Absent: Swelling, Ecchymosis, Abnormal contour, Rotation, Ligamentous instability, Laceration, Erythema, Warmth, Blisters, Other joint pain, Foreign body, Tenderness, Limited range of motion, Effusion Tenderness: Present: Pre-patellar Torie Test Positive: No Kriss Test Positive: No Limited Range of Motion: Absent: Active, Passive, Flexion, Extension Differential Diagnoses: Patellofemoral Syndrome Review of Systems - Review Of Systems Constitutional: Reports: No symptoms Eyes: Reports: No symptoms Ears, Nose, Mouth, Throat: Reports: No symptoms Respiratory: Reports: No symptoms Cardiac: Reports: No symptoms GI: Reports: No symptoms : Reports: No symptoms Musculoskeletal: Reports: No symptoms Skin: Reports: No symptoms Neurological: Reports: No symptoms Endocrine: Reports: No symptoms Hematologic/Lymphatic: Reports: No symptoms All Other Systems: Reviewed and Negative Past Medical History - Past Medical History Previously Healthy: Yes Endocrine: Reports: None Cardiovascular: Reports: None Respiratory: Reports: None Hematological: Reports: None Gastrointestinal: Reports: None Genitourinary: Reports: None Neuro/Psych: Reports: Bipolar Disorder, Other (ADHD) Musculoskeletal: Reports: Joint Pain (right ankle severe sprain, ambulatory but "needs surgery eventually") Cancer: Reports: None - Surgical History General Surgical History: Reports: Other (wisdom teeth removeal ) - Family History Family History: Reports: Unknown - Social History Smoking Status: Never smoker Hx Substance Use: No Alcohol Screening: Occasionally Physical Exam - Physical Exam Appearance: Well-appearing, No pain distress, Well-nourished Eyes: SAMY, EOMI, Conjunctiva clear ENT: Ears normal, Nose normal, Oropharynx normal Respiratory: Airway patent, Breath sounds clear, Breath sounds equal, Respirations nonlabored Cardiovascular: RRR, Pulses normal, No rub, No murmur GI/: Soft, Nontender, No masses, Bowel sounds normal, No Organomegaly Musculoskeletal: Normal strength, ROM intact, No edema, No calf tenderness Skin: Warm, Dry, Normal color Neurological: Sensation intact, Motor intact, Reflexes intact, Cranial nerves intact, Alert, Oriented Psychiatric: Affect appropriate, Mood appropriate Interpretation - Radiology Interpretation Radiology Interpretation By: Radiologist Radiology Results: Negative Exam Interpreted: Other (Lt KNEE XRAY NO ACUTE ABNORMALITIES) Critical Care Note - Critical Care Note Total Time (mins): 0 Course - Course Orders, Labs, Meds: Orders Category Date Time Status KNEE, LEFT 4 VIEWS Stat RADS 05/31/18 11:49 Completed Vital Signs: Temp Pulse Resp BP Pulse Ox 05/31/18 11:14 96.8 F L 59 L 16 132/80 96 Departure - Departure Time of Disposition: 12:20 Disposition: HOME SELF-CARE Discharge Problem: Knee pain, left, Patella, chondromalacia Instructions: Patellofemoral Pain Syndrome (ED) Condition: Good Pt referred to PMD for follow-up: Yes (SEEK FOLLOW UP CARE WITH PCP OR ORTOPEDIC SURGEON) IPMP verified?: No Additional Instructions: AVOID AGGRAVATING ACTIVITIES TAKE IBUPROFEN 400 MG 3-4 TIMES DAILY SEE F/U CARE WITH PCP OR ORTHOPEDIC SURGEON Allergies/Adverse Reactions: Allergies No Known Allergies Allergy (Verified 05/31/18 11:21) Home Medications: Ambulatory Orders 1 [No Reported Medications] 05/31/18 Disposition Discussed With: Patient, Family
--- NOTE | 2018-05-31 12:12 | DI ---
EXAM: Four views of the left knee COMPARISON: None HISTORY: Knee pain FINDINGS: There is no acute fracture or dislocation. Alignment is anatomic. Soft tissues are unrem arkable. Joint spaces are well preserved. There are no unexpected radiodensities. There is no sign ificant degenerative change. There is no joint effusion. Hoffa's fat pad is normal. IMPRESSION: No acute osseous abnormality
== END 2018-05-31 12:41 | disposition home or self-care (01) ==
LOC: ED 11:14
DX: M25.562 Pain in left knee (principal); M94.20 Chondromalacia, unspecified site
CPT/HCPCS: 99282

== ENCOUNTER 2018-09-11 14:48 | Emergency (ER) ==
[2018-09-11 14:56] VITALS: BP 129/88; TEMP 97.9; BMI 27.6
--- NOTE | 2018-09-11 15:49 | ED.PDOC ---
General ED Provider: Dr. SHAWN TALAVERA Chief Complaint: Sore Throat Stated Complaint: Sore throat Time Seen by Physician: 15:00 Mode of Arrival: Walk-In Information Source: Patient Exam Limitations: No limitations Primary Care Provider: MÓNICA MORENO Nursing and Triage Documentation Reviewed and Agree: Yes Does patient meet sepsis criteria?: No System Inflammatory Response Syndrome: Not Applicable Sepsis Protocol: For patient's 13 years and over: Temp is 96.8 and below OR 101 and greater Pulse >90 BPM Resp >20/minute Acutely Altered Mental Status Are patient's symptoms suggestive of a new infection, such as: -Pneumonia -Skin, Soft Tissue -Endocarditis -UTI -Bone, Joint Infection -Implantable Device -Acute Abdominal Infection -Wound Infection -Meningitis -Blood Stream Catheter Infection -Unknown EENT Complaint Exam - Throat Complaint/Exam Onset/Duration: 3 days ago Symptoms Are: Still present Timimg: Constant Initial Severity: Mild Current Severity: Mild Aggravating: Reports: None Alleviating: Reports: None Associated Signs and Symptoms: Reports: Dysphagia. Denies: Fever, Drooling, Foreign body sensation, Chills, Cough, Wheezing, Hoarseness, Sinus discomfort, Nasal congestion, Difficulty breathing, Lethargy, Irritability, Decreased activity, Vomiting, Diarrhea, Decreased hearing, Ear drainage Uvula Midline: Yes Belle-tonsillar Fluctuence: No Scarlatinaform Rash Present: No Lesions: Absent: Lip, Gums, Tongue, Buccal Mucosa, Pharynx Exanthem: Present: Pharynx. Absent: Lip, Gums, Tongue, Buccal Mucosa Vesicles: Absent: Lip, Gums, Tongue, Buccal Mucosa, Pharynx Stridor Present: No Sinus Tenderness Present: No Tonsillar Hypertrophy Present: No Tonsillar Exudate Present: Yes Belle-tonsillar Swelling Present: No Adenopathy Present: No Splenomegaly Present: No Differential Diagnoses: Pharyngitis, URI Review of Systems - Review Of Systems Constitutional: Reports: No symptoms Eyes: Reports: No symptoms Ears, Nose, Mouth, Throat: Reports: Ear pain, Throat pain Respiratory: Reports: No symptoms Cardiac: Reports: No symptoms GI: Reports: No symptoms : Reports: No symptoms Musculoskeletal: Reports: No symptoms Skin: Reports: No symptoms Neurological: Reports: No symptoms Endocrine: Reports: No symptoms Hematologic/Lymphatic: Reports: No symptoms All Other Systems: Reviewed and Negative Past Medical History - Past Medical History Previously Healthy: Yes Endocrine: Reports: None Cardiovascular: Reports: None Respiratory: Reports: None Hematological: Reports: None Gastrointestinal: Reports: None Genitourinary: Reports: None Neuro/Psych: Reports: Bipolar Disorder, Other (ADHD) Musculoskeletal: Reports: Joint Pain (right ankle severe sprain, ambulatory but "needs surgery eventually") Cancer: Reports: None - Surgical History General Surgical History: Reports: Other (wisdom teeth removeal ) - Family History Family History: Reports: Unknown - Social History Smoking Status: Former smoker Hx Substance Use: Yes (Occasionally weed) Alcohol Screening: Occasionally - Immunizations Tetanus Shot up to Date: No Physical Exam - Physical Exam Appearance: Well-appearing Ill-appearing: Mild Pain Distress: Mild Eyes: SAMY, EOMI, Conjunctiva clear ENT: Erythema, Exudate Respiratory: Airway patent, Breath sounds clear, Breath sounds equal, Respirations nonlabored Cardiovascular: RRR, Pulses normal, No rub, No murmur GI/: Soft, Nontender, No masses, Bowel sounds normal, No Organomegaly Musculoskeletal: Normal strength, ROM intact, No edema, No calf tenderness Skin: Warm, Dry, Normal color Neurological: Sensation intact, Motor intact, Reflexes intact, Cranial nerves intact, Alert, Oriented Psychiatric: Affect appropriate, Mood appropriate Critical Care Note - Critical Care Note Total Time (mins): 0 Course - Course Orders, Labs, Meds: Orders Category Date Time Status RAPID STREP SCREEN [MOLECULAR GROUP A STREP] Stat LAB 09/11/18 15:02 Completed Ceftriaxone Sodium [Rocephin] MEDS 09/11/18 15:46 Stat 1 gm IM ONCE STA Vital Signs: Temp Pulse Resp BP Pulse Ox 09/11/18 14:49 97.9 F 82 16 129/88 98 Departure - Departure Time of Disposition: 15:50 Disposition: HOME SELF-CARE Discharge Problem: Strep pharyngitis Instructions: Strep Throat (ED) Condition: Good Pt referred to PMD for follow-up: Yes IPMP verified?: No Additional Instructions: Please call your Family Physician as soon as possible to schedule a follow-up appointment.Please call your Family Physician as soon as possible to schedule a follow-up appointment. Allergies/Adverse Reactions: Allergies No Known Allergies Allergy (Verified 09/11/18 14:57) Home Medications: Ambulatory Orders 1 [No Reported Medications] 05/31/18 Disposition Discussed With: Patient, Family
[2018-09-11] MEDS: LIDOCAINE HCL 1% SDV ONE (15:58)
[2018-09-11] MEDS: ROCEPHIN IM STA (15:59)
== END 2018-09-11 16:37 | disposition home or self-care (01) ==
LOC: ED 14:48
DX: J02.0 Streptococcal pharyngitis (principal)
CPT/HCPCS: 87651; 96372; 99283